=== PATIENT | female | born 1965 | race Two or more races ===

== ENCOUNTER 2019-05-04 03:40 | Emergency (ER) | payer SELFPAY ==
[~2019-05-04] VITALS: Ht 154.9 cm; Wt 82.0 kg
[2019-05-04 03:47] VITALS: BP 167/77
--- NOTE | 2019-05-04 04:27 | NUR ---
PT RESTING IN [facility] AT THIS TIME; [place]. PT AND FAMILY EDUCATED ON ER PROCESS AND POC AND VERBALIZES UNDERSTANDING.
--- NOTE | 2019-05-04 05:38 | NUR ---
PT D/C WITH D/C SUMMARY AND SCRIPTS. PT PROVIDED D/C SUMMARY IN [place]. PT QUESTIONS ANSWERED AND PT DENIES ANY OTHER NEEDS PERTAINING TO THIS VISIT.
== END 2019-05-04 05:42 | disposition home or self-care (01) ==
LOC: ED 05:20
DX: M54.42 Lumbago with sciatica, left side (principal); M79.652 Pain in left thigh
CPT/HCPCS: 99284

== ENCOUNTER 2019-05-31 22:51 | Emergency (ER) | payer MEDICAID ==
[~2019-05-31] VITALS: Ht 157.5 cm; Wt 80.8 kg
[2019-05-31 22:52] VITALS: BP 156/93
[2019-05-31] MEDS ORDERED: ACETAMINOPHEN 325 MG TABLET PO ONE (23:30)
[2019-05-31 23:54] LABS: ALANINE AMINOTRANSFERASE 39 U/L (12-78); ALBUMIN 3.5 g/dL (3.4-5.0); ANION GAP 9 mmol/L (5-15); CALCIUM 8.7 mg/dL (8.5-10.1); CHLORIDE 108 mmol/L (98-107); CREATININE 0.74 mg/dL (0.55-1.02)
[2019-05-31 23:57] LABS: BASOPHILS # (AUTO) 0.05 x10^3/uL (0-0.1); BASOPHILS % (AUTO) 1 % (0-1); EOSINOPHILS # (AUTO) 0.62 x10^3/uL (0-0.4); EOSINOPHILS % (AUTO) 8 % (1-7); LYMPHOCYTES # (AUTO) 2.65 x10^3/uL (1-3.4); LYMPHOCYTES % (AUTO) 36 % (22-44); MD NO; MEAN CORPUSCULAR HGB CONC 33.2 g/dL (32.4-35.8); MEAN CORPUSCULAR VOLUME 93.4 fL (80-100); MEAN PLATELET VOLUME 10.1 fL (7.4-10.4); MONOCYTES # (AUTO) 0.59 x10^3/uL (0.2-0.8); MONOCYTES % (AUTO) 8 % (2-9); NEUTROPHILS # (AUTO) 3.49 x10^3/uL (1.8-6.8); NEUTROPHILS % (AUTO) 47 % (42-75); PLATELET COUNT 248 x10^3/uL (130-400); RED CELL DISTRIBUTION WIDTH 13.4 % (9.6-15.2)
[2019-06-01] LABS: ALKALINE PHOSPHATASE 115 U/L (45-117); BILIRUBIN,TOTAL 0.3 mg/dL (0.2-1.0); TOTAL PROTEIN 7.6 g/dL (6.4-8.2); TROPONIN I < 0.015 ng/mL (0.000-0.045)
[2019-06-01] LABS: MICROSCOPIC NOT IND
[2019-06-01 00:04] LABS: CULTURE INDICATED? NO
[2019-06-01 00:05] LABS: THYROID STIMULATING HORMONE 0.832 mIU/L (0.358-3.740)
== END 2019-06-01 01:04 | disposition home or self-care (01) ==
LOC: ED 23:01
DX: E11.65 Type 2 diabetes mellitus with hyperglycemia (principal); E11.40 Type 2 diabetes mellitus with diabetic neuropathy, unspecified
CPT/HCPCS: 36415; 71045; 80053; 81003; 84436; 84443; 84484; 84703; 85025; 93005; 99284